=== PATIENT | male | born 1960 | race Hispanic/Latino ===

== ENCOUNTER 2018-01-15 15:43 | Outpatient (CLI) | payer BC ==
[~2018-01-15 15:43] MED LIST: LISI5TAB10 PO; METF500T PO; METOPROLOL25 M1 PO
== END 2018-01-15 20:27 | disposition home or self-care (01) ==
LOC: RAD 15:43
DX: R06.02 Shortness of breath (principal); R10.11 Right upper quadrant pain

== ENCOUNTER 2018-01-18 13:38 | Outpatient (CLI) | payer BC | END 2018-01-18 21:50 | disposition home or self-care (01) | LOC: US 13:38 | DX: R06.02 Shortness of breath (principal); R10.11 Right upper quadrant pain ==

== ENCOUNTER 2018-02-01 16:33 | Observation (INO) | payer BC ==
[~2018-02-01] VITALS: Ht 165.1 cm; Wt 79.2 kg
[2018-02-01 17:25] VITALS: BP 174/85; TEMP 98.5; Ht 165.1 cm; Wt 79.2 kg
[2018-02-01 18:02] LABS: PLATELET COUNT 231 K/uL (142-355)
[2018-02-01 18:20] LABS: POTASSIUM 4.2 mmol/L (3.6-5.2); SODIUM 133 mmol/L (136-145)
[2018-02-01 18:31] LABS: PARTIAL THROMBOPLASTIN TIME 23.8 SECONDS (24.5-33.6)
[2018-02-01 19:49] VITALS: BP 129/84; TEMP 97.8
[2018-02-01 23:56] VITALS: BP 138/85; TEMP 97.8
[2018-02-02 04:00] VITALS: BP 139/93; TEMP 97.9
[2018-02-02 08:25] VITALS: BP 141/80; TEMP 98.8
[2018-02-02 12:00] VITALS: BP 148/103; TEMP 98.1
[2018-02-02] MEDS ORDERED: PANTOPRAZOLE 40MG TA PO (13:18)
[2018-02-02] MEDS ORDERED: CIPRO500 MG PO (13:23)
[2018-02-02] MEDS ORDERED: CARAFATE1 GM PO (13:24)
[2018-02-02] MEDS ORDERED: METOCLOPRAM5 MG OR (13:25)
[2018-02-02] MEDS ORDERED: LISI20TA11 PO (13:25)
[2018-02-02] MEDS ORDERED: GLIP10TA55 PO (13:26)
[2018-02-02 16:00] VITALS: BP 161/107; TEMP 98.3
[2018-02-02 18:40] LABS: PLATELET COUNT 188 K/uL (142-355)
[2018-02-02 18:53] LABS: POTASSIUM 4.4 mmol/L (3.6-5.2)
[2018-02-02 19:42] VITALS: BP 176/127; TEMP 98.4
--- NOTE | 2018-02-02 21:37 | NUR ---
2015 discharged to home with per order. Discharge instructions given & verbalized understanding.
== END 2018-02-02 20:20 | disposition home or self-care (01) ==
LOC: MED/SURG 16:33
PROVIDERS: ADMIT Family Medicine
DX: I50.9 Heart failure, unspecified (principal); I10 Essential (primary) hypertension; E11.9 Type 2 diabetes mellitus without complications; R07.89 Other chest pain; R13.19 Other dysphagia
CPT/HCPCS: 80053; 82550; 82948; 83735; 83880; 84100; 84484; 85027; 85610; 85730; 86318; 93005; 93306; 94760; 96365; 96366; 96367; 96372; 96374; 99220; G0378; G0379; J1650; J2550

== ENCOUNTER 2018-09-01 11:21 | Outpatient (CLI) | payer BC ==
[~2018-09-01 11:21] MED LIST changes: +CARAFATE1 GM PO; +CIPRO500 MG PO; +GLIP10TA55 PO; +LISI20TA11 PO; +METOCLOPRAM5 MG OR; +PANTOPRAZOLE 40MG TA PO
== END 2018-09-01 19:37 | disposition home or self-care (01) ==
LOC: RESP 11:21
DX: I42.8 Other cardiomyopathies (principal)
CPT/HCPCS: 93306

== ENCOUNTER 2019-11-02 14:10 | Outpatient (CLI) | payer OTHER | END 2019-11-02 21:14 | disposition home or self-care (01) | LOC: RESP 14:10 | DX: I50.9 Heart failure, unspecified (principal) | CPT/HCPCS: 93005; 93306 ==

== ENCOUNTER 2019-12-07 13:34 | Outpatient (CLI) | payer OTHER | END 2019-12-07 19:29 | disposition home or self-care (01) | LOC: RAD 13:34 | DX: I50.9 Heart failure, unspecified (principal); R06.02 Shortness of breath ==

== ENCOUNTER 2021-05-21 11:54 | Emergency (ER) | payer OTHER ==
[~2021-05-21] VITALS: Ht 170.2 cm; Wt 77.6 kg
[2021-05-21 12:11] VITALS: TEMP 98.8
[2021-05-21 12:46] LABS: PLATELET COUNT 261 K/uL (142-355)
[2021-05-21 13:09] LABS: POTASSIUM 5.5 mmol/L (3.6-5.2); SODIUM 127 mmol/L (136-145)
[2021-05-21 13:12] VITALS: BP 106/55
[2021-05-21 13:28] LABS: PARTIAL THROMBOPLASTIN TIME 23.9 SECONDS (24.5-33.6)
== END 2021-05-21 16:02 | disposition home or self-care (01) ==
LOC: ED 11:54
PROVIDERS: Hospitalist
DX: N17.8 Other acute kidney failure (principal); E11.65 Type 2 diabetes mellitus with hyperglycemia; E86.0 Dehydration; Z20.822 Contact with and (suspected) exposure to COVID-19
CPT/HCPCS: 36600; 80053; 81000; 81002; 82550; 82805; 83880; 84484; 85027; 85610; 85730; 87635; 93005; 96360; 96374; 96375; 99284; J0360; J1815; U0003

== ENCOUNTER 2022-12-29 02:47 | Emergency (ER) | payer OTHER ==
[~2022-12-29] VITALS: Ht 170.2 cm; Wt 72.6 kg
[2022-12-29 02:58] VITALS: BP 201/105; TEMP 98.7
== END 2022-12-29 04:10 | disposition home or self-care (01) ==
LOC: ED 02:47
DX: M75.51 Bursitis of right shoulder (principal)
CPT/HCPCS: 96372; 99282; J1100